=== PATIENT | female | born 1950 | race Caucasian/White ===

== ENCOUNTER 2019-09-27 10:38 | Inpatient (IN) ==
[~2019-09-27 10:38] MED LIST: *HR* HYDROmorphone PF 0.5 MG/0.5 ML SYRINGE IVP PRN; *HR* Meperidine 25 MG/ML SYRINGE IVP PRN; *HR* OxyCODONE Immed Rel 5 MG TABLET PO PRN; Acetaminophen IV 1,000 MG/100 ML INFUS..BTL IVPB ONE; Ondansetron 4 MG/2 ML VIAL IVP ONE
[2019-09-27] MEDS ORDERED: Lidocaine -MPF 2% 2 ML VIAL ONE (10:54)
[2019-09-27] MEDS ORDERED: *HR* Succinylcholine 200 MG/10 ML VIAL IVP ONE (10:54)
[2019-09-27] MEDS ORDERED: Ondansetron 4 MG/2 ML VIAL ONE (10:54)
[2019-09-27] MEDS ORDERED: Lidocaine HCL 4 ML Topical Solution (Laryng-O-Jet Kit Sterile Pak) TP ONE (10:54)
[2019-09-27] MEDS ORDERED: Dexamethasone 4 MG/ML VIAL ONE (10:54)
[2019-09-27] MEDS ORDERED: Ropivacaine/PF 0.5% 30 ML VIAL ONE (10:54)
[2019-09-27] MEDS ORDERED: *HR* Propofol 200 MG/20 ML VIAL IVP ONE (10:54)
[2019-09-27] MEDS ORDERED: *HR* Midazolam HCl 2 MG/2 ML VIAL ONE (10:54)
[2019-09-27] MEDS ORDERED: Ethanol\\Acetic Acid\\Na Ace\\Ben 1,000 ML IRRIG.SOLN IR ONE (10:59)
[2019-09-27] MEDS ORDERED: Vancomycin 1,000 MG VIAL ONE (10:59)
[2019-09-27] MEDS ORDERED: Ringers Solution, Lactated 1,000 ML IVC SCH ×2 (11:15→14:15)
[2019-09-27] MEDS ORDERED: *HR* FentaNYL (PF) 100 MCG/2 ML VIAL ONE (11:42)
[2019-09-27] MEDS ORDERED: *HR* PHENYLEPHRINE 1,000 MCG/10 ML SYRINGE IVP ONE (12:16)
[2019-09-27 13:50] LABS: Hematocrit 34.7 % (35.3-44.9)
[2019-09-27 13:51] LABS: Hemoglobin 11.3 g/dL (11.5-15.4)
[2019-09-27] MEDS ORDERED: *HR* OxyCODONE Immed Rel 5 MG TABLET PO PRN (14:15)
[2019-09-27] MEDS ORDERED: D5% in Water 1,000 ML IVC PRN (14:15)
[2019-09-27] MEDS ORDERED: Dextrose Gel 15 GM/37.5 ML TUBE PO PRN ×2 (14:15)
[2019-09-27] MEDS ORDERED: MOM Conc 10 ML UD.LIQ PO PRN (14:15)
[2019-09-27] MEDS ORDERED: Naloxone 0.4 MG/ML INJ IVP PRN (14:15)
[2019-09-27] MEDS ORDERED: *HR* OxyCODONE/APAP 5/325 TABLET PO PRN (14:15)
[2019-09-27] MEDS ORDERED: *HR* Dextrose 50 % in Water (Vial) 50 ML VIAL IVP PRN (14:15)
[2019-09-27] MEDS ORDERED: Ondansetron 4 MG/2 ML VIAL IVP PRN (14:15)
[2019-09-27] MEDS ORDERED: Sennosides 8.6 MG TABLET PO PRN (14:15)
[2019-09-27] MEDS ORDERED: CeFAZolin 2 GM/120 ML BAG IVPB SCH (16:00)
[2019-09-27] MEDS ORDERED: Insulin LISPRO 300 UNITS/3 ML VIAL SQ SCH ×2 (16:30→21:00)
[2019-09-27 17:34] VITALS: BP 121/83
[2019-09-27] MEDS ORDERED: *HR* Enoxaparin 30 MG/0.3 ML SYRINGE SQ SCH ×2 (18:00)
== END 2019-09-27 19:00 | disposition home or self-care (01) | DRG 483 ==
LOC: SAMDAY 10:38 → 3NENU 14:02 → SAMDAY 18:22 → 3NENU 18:23
PROVIDERS: ADMIT Orthopaedic Surgery; ATTEND Orthopaedic Surgery